=== PATIENT | male | born 1990 | race Caucasian/White ===

== ENCOUNTER 2022-12-12 11:57 | Emergency (ER) | payer MEDICAID, OTHER ==
[~2022-12-12] VITALS: Ht 170.2 cm; Wt 73.0 kg
[2022-12-12 12:01] VITALS: BP 139/90; PULSE 102; RESP 16; TEMP 98.5; O2SAT 97
[2022-12-12] MEDS ORDERED: FOLIC ACID 1 MG, THIAMINE HCL 100 MG, MVI, ADULT NO.1 10 ML in DEXTROSE 5% WATER 1,000 ML IV ONE ×4 (13:15)
[2022-12-12] MEDS ORDERED: ACETAMINOPHEN 325MG TABLET PO ONE (15:00)
== END 2022-12-12 17:00 | disposition home or self-care (01) ==
LOC: ER 11:57
DX: F10.129 Alcohol abuse with intoxication, unspecified (principal); Z98.890 Other specified postprocedural states; Y90.9 Presence of alcohol in blood, level not specified
CPT/HCPCS: 99284; 96365; J3490 ×2; J3411; J7070